=== PATIENT | female | born 1960 | race Caucasian/White ===

== ENCOUNTER → 2020-05-22 | Outpatient (CLI) | payer OTHER ==
[~2020-05-22] MED LIST: AMLO-150 PO; ASCO500C10 PO; ASPI-496 PO; BENA40TA3 PO; CHOL2000 PO; MULT-826 PO; OXYC-307 PO; SERT50TA28 PO; TRIA1CAP3 PO; iron PO
[2020-05-22 14:01] LABS: ALANINE AMINOTRANSFERASE 21 U/L (12-78); ALBUMIN 3.9 g/dL (3.4-5.0); ANION GAP 4 mmol/L (5-15); CALCIUM 9.3 mg/dL (8.5-10.1); CHLORIDE 111 mmol/L (98-107); CREATININE 1.07 mg/dL (0.55-1.02)
[2020-05-22 14:03] LABS: ALKALINE PHOSPHATASE 94 U/L (45-117); BILIRUBIN,TOTAL 0.6 mg/dL (0.2-1.0); TOTAL PROTEIN 7.2 g/dL (6.4-8.2)
[2020-05-22 14:38] LABS: BASOPHILS # (AUTO) 0.05 x10^3/uL (0-0.1); BASOPHILS % (AUTO) 1 % (0-1); EOSINOPHILS # (AUTO) 0.19 x10^3/uL (0-0.4); EOSINOPHILS % (AUTO) 3 % (1-7); LYMPHOCYTES # (AUTO) 2.34 x10^3/uL (1-3.4); LYMPHOCYTES % (AUTO) 32 % (22-44); MD NO; MEAN CORPUSCULAR HEMOGLOBIN 27.8 pg (27.0-34.8); MEAN CORPUSCULAR HGB CONC 32.3 g/dL (32.4-35.8); MEAN CORPUSCULAR VOLUME 86.2 fL (80-100); MONOCYTES # (AUTO) 0.58 x10^3/uL (0.2-0.8); MONOCYTES % (AUTO) 8 % (2-9); NEUTROPHILS # (AUTO) 4.17 x10^3/uL (1.8-6.8); NEUTROPHILS % (AUTO) 57 % (42-75); PLATELET COUNT 270 x10^3/uL (130-400); RED BLOOD COUNT 4.46 x10^6/uL (3.82-5.3); RED CELL DISTRIBUTION WIDTH 13.9 % (9.6-15.2)
== END | disposition home or self-care (01) ==
LOC: STAR 12:22
PROVIDERS: ATTEND Orthopaedic Surgery
DX: Z01.818 Encounter for other preprocedural examination (principal); M25.561 Pain in right knee; M17.11 Unilateral primary osteoarthritis, right knee; I51.7 Cardiomegaly
CPT/HCPCS: 36415; 80053; 85025; 87081; 93005

== ENCOUNTER 2020-05-28 07:36 | Inpatient (IN) | payer OTHER ==
[~2020-05-28] VITALS: Ht 175.3 cm; Wt 79.0 kg
[~2020-05-28 07:36] MED LIST changes: +EPINEPHRINE 1 MG/ML, 1ML ONE; +KETOROLAC 60 MG/2 ML ONE; +METHYLENE BLUE 10 MG/ML 10ML ONE; +NEOSPORIN OINT, 15GM ONE; +ROPIvacaine/PF 0.2%, 20 ML ONE; +ROPIvacaine/PF 0.5%, 20 ML ONE; +SODIUM CHLORIDE 0.9% 50 ML ONE; +TRANEXAMIC ACID 100 MG/ML, 10ML ONE; +VANCOMYCIN 1,000 MG ONE; +morphine SULFATE/PF 1 MG/ML, 10ML ONE
[2020-05-28] MEDS ORDERED: VANCOMYCIN PER PHARMACY MC STA (08:49)
[2020-05-28] MEDS ORDERED: LACTATED RINGERS 1,000 ML IV SCH (09:00)
[2020-05-28] MEDS ORDERED: LIDOCAINE-MPF 1%, 2ML INFIL ONE (09:00)
[2020-05-28] MEDS ORDERED: CHLORHEXIDINE 15 ML UDC MM ONE (09:00)
[2020-05-28] MEDS ORDERED: ACETAMINOPHEN 500 MG TABLET PO ONE (09:00)
[2020-05-28] MEDS ORDERED: FENTANYL PF 100 MCG/2ML ONE ×3 (09:08→11:36)
[2020-05-28] MEDS ORDERED: TAMSULOSIN 0.4 MG CAP.ER.24H PO ONE (09:30)
[2020-05-28] MEDS ORDERED: VANCOMYCIN 2,000 MG in SODIUM CHLORIDE 0.9% 500 ML IV ONE (09:30)
[2020-05-28] MEDS ORDERED: TAMSULOSIN 0.4 MG CAP.ER.24H ONE (09:33)
[2020-05-28] MEDS ORDERED: LIDOCAINE-MPF 2% ,5ML ONE (09:48)
[2020-05-28] MEDS ORDERED: PROPOFOL 10 MG/ML, 20ML ONE (09:48)
[2020-05-28] MEDS ORDERED: ROPIvacaine/PF 0.5%, 30 ML ONE (09:49)
[2020-05-28] MEDS ORDERED: CEFAZOLIN 1,000 MG ONE ×2 (09:53)
[2020-05-28] MEDS ORDERED: GLYCOPYRROLATE 0.2MG/1ML, 5ML ONE (09:58)
[2020-05-28] MEDS ORDERED: DEXAMETHASONE 4 MG/ML, 1ML ONE ×3 (10:04)
[2020-05-28] MEDS ORDERED: EPHEDRINE 50 MG/ML, 1ML ONE (10:08)
[2020-05-28] MEDS ORDERED: OXYcodone 5 MG/5 ML ORAL.SOL UDC PO PRN (10:30)
[2020-05-28] MEDS ORDERED: ONDANSETRON 2MG/ML, 2ML IVPush PRN ×2 (10:30→14:30)
[2020-05-28] MEDS ORDERED: ONDANSETRON 2MG/ML, 2ML ONE (11:08)
[2020-05-28] MEDS: FENTANYL PF 100 MCG/2ML IV PRN ×3 (11:39→11:56)
[2020-05-28 13:11] VITALS: BP 94/58
[2020-05-28 14:20] VITALS: BP 94/61
[2020-05-28] MEDS: HYDROcodone/APAP 5/325 TABLET PO PRN ×3 (14:24→22:44)
[2020-05-28] MEDS ORDERED: HYDROcodone/APAP 5/325 TABLET PO PRN (14:30)
[2020-05-28] MEDS ORDERED: HYDROcodone/APAP 7.5-325MG/15ML UDC PO PRN (14:30)
[2020-05-28] MEDS: KETOROLAC 30 MG/1 ML IVPush SCH (18:03)
[2020-05-28] MEDS: POTASSIUM CHLORIDE 10 MEQ in D5%-0.45% NACL 1,000 ML IV SCH (18:03)
[2020-05-28] MEDS: CEFAZOLIN PMX 1GM/50ML 50 ML IVPB SCH (18:03)
[2020-05-28 20:06] VITALS: BP 99/59
[2020-05-28] MEDS: FERROUS SULFATE 325 MG TABLET PO SCH (20:30)
[2020-05-28] MEDS: CHOLECALCIFEROL 1,000 UNIT TABLET PO SCH (20:30)
[2020-05-28] MEDS: ASCORBIC ACID 500 MG TABLET PO SCH (20:31)
[2020-05-28] MEDS ORDERED: BENAZEPRIL 20 MG TABLET PO SCH (21:00)
[2020-05-28] MEDS ORDERED: AMLODIPINE 5 MG TABLET PO SCH (21:00)
[2020-05-28] MEDS ORDERED: VANCOMYCIN PMX 1GM/200ML 200 ML IVPB ONE (22:00)
[2020-05-28] MEDS ORDERED: HYDROcodone/APAP 5/325 TABLET ONE (22:22)
[2020-05-29] MEDS: KETOROLAC 30 MG/1 ML IVPush SCH ×2 (03:00→09:24)
[2020-05-29] MEDS: CEFAZOLIN PMX 1GM/50ML 50 ML IVPB SCH (03:00)
[2020-05-29 03:05] VITALS: BP 98/60
[2020-05-29] MEDS: HYDROcodone/APAP 5/325 TABLET PO PRN ×2 (05:56→10:05)
[2020-05-29] MEDS ORDERED: ASPIRIN 81 MG TABLET EC PO SCH (06:00)
[2020-05-29 07:33] VITALS: BP 95/60
[2020-05-29] MEDS ORDERED: OXYC-307 PO (08:23)
[2020-05-29] MEDS ORDERED: ASPI81TA45 PO (08:23)
[2020-05-29] MEDS ORDERED: SERTRALINE 50MG TABLET PO SCH (09:00)
[2020-05-29] MEDS ORDERED: MULTIVITAMIN 1 TABLET PO SCH (09:00)
[2020-05-29] MEDS ORDERED: TRIAMTERENE-HCTZ 37.5/25 MG TABLET PO SCH (09:00)
[2020-05-29] MEDS: CHOLECALCIFEROL 1,000 UNIT TABLET PO SCH (09:24)
[2020-05-29] MEDS: FERROUS SULFATE 325 MG TABLET PO SCH (09:24)
[2020-05-29] MEDS: ASCORBIC ACID 500 MG TABLET PO SCH (09:24)
[2020-05-29] MEDS: POTASSIUM CHLORIDE 10 MEQ in D5%-0.45% NACL 1,000 ML IV SCH (10:36)
== END 2020-05-29 11:40 | disposition home or self-care (01) | DRG 470 ==
LOC: OUT 07:36 → 4NE 12:24 → OUT 12:32 → DCLOUNGE 05-29 11:26
PROVIDERS: ADMIT Orthopaedic Surgery; ATTEND Orthopaedic Surgery
PROC: 0SRC0J9 Replacement of Right Knee Joint with Synthetic Substitute, Cemented, Open Approach (ICD-10-PCS; principal; 2020-05-28 10:00)
DX: M17.11 Unilateral primary osteoarthritis, right knee (principal)
CPT/HCPCS: 36415; J3490; 87635; C1713; G0378; J0171; J0690; J1100; J1885; J2274; J2405; J2704; J2795; J3010; J3370; J3480; C1776; J7040; Q9968